=== PATIENT | female | born 1990 | race Caucasian/White ===

== ENCOUNTER 2018-08-03 09:55 | Emergency (ER) | payer OTHER ==
[~2018-08-03] VITALS: Ht 177.8 cm; Wt 63.5 kg
[~2018-08-03 09:55] MED LIST: Benadryl 50 mg50 MG PO; METPRE4DP PO; PENVK500 PO; Pepcid20 MG PO; TRAM50 PO; Veetids 500500 MG PO
[2018-08-03] MEDS ORDERED: IBUP600 PO (10:22)
== END 2018-08-03 11:44 | disposition home or self-care (01) ==
LOC: ER 09:55
DX: J11.1 Influenza due to unidentified influenza virus with other respiratory manifestations (principal); Z87.891 Personal history of nicotine dependence
CPT/HCPCS: 36415; 96361; 96374; 99283-25; J2405; J7030

== ENCOUNTER 2018-08-21 22:11 | Emergency (ER) | payer OTHER ==
[~2018-08-21] VITALS: Ht 177.8 cm; Wt 63.5 kg
[~2018-08-21 22:11] MED LIST changes: +IBUP600 PO
[2018-08-21] MEDS ORDERED: HYDR1TAB94 PO (22:48)
[2018-08-21] MEDS ORDERED: AMOCLA500 (22:48)
== END 2018-08-22 00:30 | disposition left against medical advice (07) ==
LOC: ER 22:11
DX: Z53.21 Procedure and treatment not carried out due to patient leaving prior to being seen by health care provider (principal); K08.89 Other specified disorders of teeth and supporting structures; R11.10 Vomiting, unspecified